=== PATIENT | male | born 1995 | race Asian ===

== ENCOUNTER 2019-08-01 02:02 | Emergency (ER) | payer OTHER ==
[~2019-08-01] VITALS: Ht 182.9 cm; Wt 81.8 kg
[2019-08-01 02:10] VITALS: BP 121/73; TEMP 98.9
[2019-08-01 02:57] VITALS: PULSE 83
== END 2019-08-01 02:57 | disposition home or self-care (01) ==
LOC: COL.ER 02:02
DX: S01.511A Laceration without foreign body of lip, initial encounter (principal); W10.9XXA Fall (on) (from) unspecified stairs and steps, initial encounter; Y92.009 Unspecified place in unspecified non-institutional (private) residence as the place of occurrence of the external cause